=== PATIENT | female | born 1990 | race Caucasian/White ===

== ENCOUNTER 2017-03-01 10:03 | Emergency (ER) | payer MEDICAID ==
[2017-03-01] MEDS ORDERED: ALBUTEROL SULFATE/IPRATROPIUM 3 ML NEBU IH ONE ×2 (10:26→10:37)
--- NOTE | 2017-03-01 10:28 | ERNOTE ---
Medical Problem HPI - General Time Seen by Provider: 03/01/17 10:25 Source: patient Exam Limitations: no limitations - Immun/Allergies/Home Medications Immunizations: IMMUNIZATION HX Immunizations Up to Date Yes History of Influenza Vaccine No Hx Pneumococcal Vaccination No Allergies/Adverse Reactions: Allergies Sulfa (Sulfonamide Antibiotics) Allergy (Verified 03/01/17 11:10) Hives Home Medications: HOME MEDICATIONS Albuterol Sulfate [Proair Hfa] 1 - 2 puff IH Q4H PRN #1 inhaler 03/01/17 [Last Taken Unknown] Albuterol Sulfate [Proair Respiclick] 90 mcg IH Q4H PRN 03/01/17 [Last Taken Unknown] Azithromycin 250 mg PO DAILY #6 tablet 03/01/17 [Last Taken Unknown] Beclomethasone Dipropionate [Qvar] 8.7 gm IH DAILY 03/01/17 [Last Taken Unknown] - History of Present History Narrative: Patient presents to the emergency room for 24-hour history of sore throat cough congestion and shortness of breath. She has a history of asthma she has been using her albuterol more than usual. Denies any fevers or chills. Her shortness of breath is minimal she is in no respiratory distress. Review of Systems - Review of Systems Constitutional: Present: fatigue, malaise EYE: Present: no symptoms reported ENT: Present: sore throat Respiratory: Present: shortness of breath, cough Cardiology: Present: no symptoms reported Gastrointestinal/Abdominal: Present: no symptoms reported Genitourinary: Present: no symptoms reported Musculoskeletal: Present: no symptoms reported Skin: Present: no symptoms reported - Social History Have you smoked in the past 12 months: No Do you dip or chew tobacco: No - Immunizations Immunizations Up to Date: Yes Hx Pneumococcal Vaccination: No History of Influenza Vaccine: No Physical Exam - Physical Exam General Appearance: Present: wd/wn, alert, no apparent distress Head Exam: Present: normal inspection, no evidence of injury Eye Exam: Normal inspection: bilateral, PERRL: bilateral, EOMI: bilateral Ears, Nose, Throat: Present: other - tympanic membranes are within normal limits Neck: Present: normal inspection - throat is injected I do not see any sites at this time., nontender, supple, full range of motion Respiratory: Present: no respiratory distress - upon auscultation patient does have bibasilar wheezes with decreased breath sounds at both bases she is not in any respiratory distress at this time. Chest is nontender. Cardiovascular/Chest: Present: regular rate, rhythm, no murmur, normal peripheral pulses Gastrointestinal/Abdominal: Present: normal bowel sounds, nontender, nondistended, soft, no organomegaly Extremity Exam: Present: normal inspection ED Progress - Results and Orders Patient's Lab Results:: I have reviewed the patient's lab results. - Vital Signs Patient's Vital Signs:: I have reviewed the patient's vital signs. - X-Ray X-Ray #1 X-Ray: chest Departure Clinical Impression: Bronchitis Pharyngitis Qualifiers: Pharyngitis/tonsillitis etiology: unspecified etiology Qualified Code(s): J02.9 - Acute pharyngitis, unspecified - Departure Disposition: Home self-care Condition: Good Instructions: Acute Bronchitis Prescriptions: Albuterol Sulfate [Proair Hfa] 1 - 2 puff IH Q4H PRN #1 inhaler PRN Reason: Shortness Of Breath Azithromycin 250 mg PO DAILY #6 tablet
[2017-03-01 11:55] VITALS: BP 126/72
== END 2017-03-01 11:39 | disposition home or self-care (01) ==
LOC: ER 10:03
DX: J40 Bronchitis, not specified as acute or chronic (principal); J02.9 Acute pharyngitis, unspecified